=== PATIENT | male | born 1950 | race Caucasian/White ===

== ENCOUNTER → 2024-02-09 | Outpatient (CLI) | payer MEDICARE, MEDICAID ==
[~2024-02-09] MED LIST: ASPI-1406 PO; DOCU250C14 MT; OXYC-100 MT; SULF1TAB48 MT
== END | disposition home or self-care (01) ==
LOC: RAD 12:54
DX: M25.461 Effusion, right knee (principal); M17.11 Unilateral primary osteoarthritis, right knee; Z96.661 Presence of right artificial ankle joint
CPT/HCPCS: 73562

== ENCOUNTER → 2024-06-07 | Outpatient (CLI) | payer MEDICARE, MEDICAID | END | disposition home or self-care (01) | LOC: RAD 12:50 | DX: M17.0 Bilateral primary osteoarthritis of knee (principal); M25.862 Other specified joint disorders, left knee; Z96.651 Presence of right artificial knee joint; Z98.890 Other specified postprocedural states | CPT/HCPCS: 73560 ==